=== PATIENT | female | born 1995 | race Asian ===

== ENCOUNTER 2018-05-23 20:12 | Emergency (ER) | payer BC ==
[~2018-05-23] VITALS: Ht 160 cm; Wt 59.0 kg
[2018-05-23 20:25] VITALS: BP 125/82
[2018-05-23] MEDS ORDERED: LET 3ml Soln TOPIC ONE (20:45)
[2018-05-23] MEDS ORDERED: Lidocaine 1% MPF 10mg/ml 5ml INJ ONE (20:45)
[2018-05-23] MEDS ORDERED: Bacitracin Oint UD TOPIC ONE (20:45)
--- NOTE | 2018-05-23 22:14 | Emergency Room Report ---
History of Present Illness General Chief Complaint: Laceration Source: Patient Present Illness HPI The patient presents with a laceration to her left index finger. She was removing scissors and stabbed her finger. She is not examined the cut very well. She denies numbness. The bleeding was controlled with direct pressure. She denies abnormal range of motion. Raised in the [place] therefore tetanus is up-to-date. No other somatic complaints. She does have some anxiety about possible stitches. 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 Last Menstrual Period: 02/2018 Now: No Reviewed Nursing Documentation: PMH: Agreed; PSxH: Agreed Nursing Documentation-PMH Past Medical History: No History, Except For Hx Asthma: Yes Review of Systems Musculoskeletal: Reports: see HPI Skin: Reports: see HPI Neurological: Reports: see HPI Hematologic/Lymphatic: Reports: see HPI Physical Exam Vital Signs Date Time Temp Pulse Resp B/P (MAP) Pulse Ox O2 Delivery O2 Flow Rate FiO2 05/23/18 20:15 98.1 82 24 130/85 100 Sp02 EP Interpretation: reviewed, normal General Appearance: well appearing, no apparent distress, GCS 15 Head: normocephalic, atraumatic Eyes: bilateral eye normal inspection, bilateral eye PERRL ENT: hearing grossly normal, normal voice, moist mucus membranes Neck: full range of motion, supple Respiratory: no respiratory distress, speaking full sentences Cardiovascular #1: regular rate, rhythm Cardiovascular #2: 2+ radial (L) - Good capillary refill Gastrointestinal: normal inspection Musculoskeletal: normal range of motion Neurologic: alert, oriented x3, motor strength/tone normal, sensory intact Psychiatric: mood/affect normal Skin: laceration - Left index finger through and through Procedures Laceration/Wound Repair Laceration/Wound Repair : Consent: Verbal Wound Location: upper extremity Wound's Depth, Shape: other - through and through Wound Length (cm): 2 - total Wound Explored: clean Irrigated w/ Saline (ccs): 10 Betadine Prep?: Yes Anesthesia: 1% Lidocaine Volume Anesthetic (ccs): 1 Wound Debrided: minimal Wound Repaired With: sutures Suture Size/Type: 6:0, proline Layer Closure?: No Sterile Dressing Applied?: Yes Splint Applied?: No Patient Tolerated: Well Complications: None Progress Tourniquet applied4 bleeding control. There were 2 lacerations. One required debridement. These were closed with 6-0 Prolene. Patient tolerated the procedure well. Medical Decision Making Diagnostic Impression: Primary Impression: Laceration of left index finger Qualified Codes: S61.211A - Laceration without foreign body of left index finger without damage to nail, initial encounter ER Course Through and through laceration left index finger. Sutures indicated. See procedure note - patient tolerated procedure well s. Patient stable for outpatient observation and treatment. Last Vital Signs Date Time Temp Pulse Resp B/P (MAP) Pulse Ox O2 Delivery O2 Flow Rate FiO2 05/23/18 22:57 98.1 82 24 123/81 100 Room Air Status: improved Disposition: HOME, SELF-CARE Condition: Improved Scripts Bacitracin (Bacitracin) 28.4 Gm Oint...g. 1 APPLIC TOPIC BID, #10 GM Prov: Odell Murray MD 05/23/18 Referrals: NOT CHOSEN IPA/,REFERRING (PCP) Odell Murray MD May 23, 2018 22:14
[2018-05-23] MEDS ORDERED: BACITRACIN15 GM TOPIC (22:15)
[2018-05-23 22:57] VITALS: BP 123/81
--- NOTE | 2018-05-23 22:57 | NUR ---
ER DISCHARGE NOTE: Patient is cleared to be discharged per Dr. Murray. Suturing done , Meds given as ordered. Pt is A/Ox4 on room air with stable vital signs, pt was given dc and prescription instructions, pt was able to verbalize understanding, pt id band removed. pt is able to ambulate with steady gait and pt took all belongings. Accompanied by her family.
--- NOTE | 2018-05-24 01:11 | NUR ---
ED Nurse Note: Pt arrived ED from home, c/o left Index finger leceration and pain 08/03 today. Pt is A/O X4. Vital signs stable at this time, waitng for orders.
== END 2018-05-23 22:57 | disposition home or self-care (01) ==
LOC: EMR 20:54
DX: S61.211A Laceration without foreign body of left index finger without damage to nail, initial encounter (principal); W26.9XXA Contact with unspecified sharp object(s), initial encounter; Y92.9 Unspecified place or not applicable
CPT/HCPCS: 99283

== ENCOUNTER 2018-05-30 11:01 | Emergency (ER) | payer BC ==
[~2018-05-30] VITALS: Ht 160 cm; Wt 68.0 kg
[~2018-05-30 11:01] MED LIST: BACITRACIN15 GM TOPIC
--- NOTE | 2018-05-30 11:17 | NUR ---
ED Nurse Note: PT WALKED IN TO ER TODAY FROM HOME. AOX4. PT HERE FOR SUTURE REMOVAL FROM LEFT INDEX FINGER. PT STATES SUTURES WERE PLACED X [address] PAYNE. SITE IS CLEAN, DRY, AND INTACT. NO REDNESS, DRAINAGE, OR BLEEDING NOTED. NO SIGNS OF INFECTION.
[2018-05-30 11:18] VITALS: BP 106/72
--- NOTE | 2018-05-30 11:35 | NUR ---
ED Nurse Note: DR PAYNE AT BEDSIDE FOR SUTURE REMOVAL.
--- NOTE | 2018-05-30 11:44 | Emergency Room Report ---
History of Present Illness General Chief Complaint: Wound Recheck/Suture Removal Source: Patient Present Illness HPI Patient sutured 05/23 with through and through stab left index finger. Complains of numbness pulp of finger. No fevers. Pain nil. Here for suture removal. At the time, there was bleeding which suggested possible arterial ( and nerve) injury. 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 Last Menstrual Period: Now: No - on birthcontrol Reviewed Nursing Documentation: PMH: Agreed; PSxH: Agreed Nursing Documentation-PMH Past Medical History: No History, Except For Hx Asthma: Yes Review of Systems Constitutional: Denies: fever Musculoskeletal: Denies: joint pain Skin: Reports: see HPI Neurological: Reports: see HPI Hematologic/Lymphatic: Reports: see HPI Physical Exam Vital Signs Date Time Temp Pulse Resp B/P (MAP) Pulse Ox O2 Delivery O2 Flow Rate FiO2 05/30/18 11:12 98.2 81 16 100/66 98 Room Air Sp02 EP Interpretation: reviewed, normal General Appearance: well appearing, no apparent distress Head: normocephalic, atraumatic Eyes: bilateral eye normal inspection, bilateral eye PERRL ENT: hearing grossly normal, normal voice Neck: full range of motion, supple Respiratory: no respiratory distress, speaking full sentences Musculoskeletal: normal range of motion Neurologic: alert, oriented x3, sensory deficit - distal to laceration Psychiatric: mood/affect normal Skin: no rash, wd healing/no infection noted Medical Decision Making Diagnostic Impression: Primary Impression: Encounter for removal of sutures Additional Impression: Numbness ER Course Patient here for suture removal with complaints of numbness of finger tip. Sutures to be removed. Peripheral nerve injury evident. Sutures removed. Discussed possible course of nerve healing. May be permanent numbness. Patient stable for outpatient observation and treatment. Last Vital Signs Date Time Temp Pulse Resp B/P (MAP) Pulse Ox O2 Delivery O2 Flow Rate FiO2 05/30/18 11:48 98.3 82 17 104/74 100 Room Air Status: improved Disposition: HOME, SELF-CARE Condition: Improved Scripts Vitamin B Complex (VITAMIN B COMPLEX) 1 Each Capsule 1 CAP ORAL DAILY, #30 CAP 0 Refills Prov: Odell Murray MD 05/30/18 Odell Murray MD May 30, 2018 11:44
[2018-05-30] MEDS ORDERED: VITAMIN B COMP1 EAC2 ORAL (11:46)
[2018-05-30 11:48] VITALS: BP 104/74
--- NOTE | 2018-05-30 11:48 | NUR ---
ED Nurse Note: PT SITTING PEACEFULLY IN BED IN NAD. AOX4. PRESCRIPTIONS AND DISCHARGE PAPERWORK EXPLAINED TO PT. PT VERBALIZES UNDERSTANDING AND ALL QUESTIONS ANSWERED. PRESCRIPTIONS AND DISCHARGE PAPERWORK GIVEN TO PT AND ID WRISTBAND REMOVED. PT WALKED OUT OF ER WITH STEADY GAIT AND ALL BELONGINGS.
== END 2018-05-30 12:30 | disposition home or self-care (01) ==
LOC: EMR 11:49
DX: R20.0 Anesthesia of skin (principal); Z48.02 Encounter for removal of sutures; Z91.010 Allergy to peanuts
CPT/HCPCS: 99282